=== PATIENT | female | born 2005 | race Caucasian/White ===

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

== ENCOUNTER → 2024-09-10 | Outpatient (CLI) | payer BC, SELFPAY | END | disposition home or self-care (01) | PROVIDERS: PCP Family Medicine; Referring Provider Otolaryngology; Visit Provider Otolaryngology | DX: J03.90 Acute tonsillitis, unspecified (principal) | CPT/HCPCS: 87070 ==

== ENCOUNTER → 2024-11-11 | Outpatient (CLI) | payer BC, SELFPAY ==
--- NOTE | 2024-11-11 09:40 | TONS_PTH ---
PATIENT: MAURO SIMS LOC: [facility] #:[id number] AGE/SX: 19/ ROOM: RE11/11/[address]: Dr. Austin Conley MD : 2005 BED: DIS: 11/11/2024 SPEC #: [id number] RECD: 11/11/24 15:47 STATUS: TREVOR ROMAN #: [id number] KRISTINE: 11/11/24 09:[address]: Austin Conley DEPT: SURGICAL PATHOLOGY RECD BY: Nikita Coats ENTERED: 11/12/24 10:50 SP TYPE: TONSILS OTHR DR: Dr. Austin Parker MD Tissues: A - Tonsil, NOS Procedures: Surgery Specimen Level III HEADER OPERATION: Tonsillectomy PRE-OP DIAGNOSIS: Chronic tonsillitis TISSUE SUBMITTED: A- Bilateral tonsils, right tonsil pinned MICROSCOPIC DIAGNOSIS A. Tonsils, tonsillectomy: A1. Reactive lymphoid hyperplasia (left). A2. Reactive lymphoid hyperplasia (right). MICROSCOPIC DESCRIPTION Slides are reviewed. GROSS DESCRIPTION A. Received in formalin labeled with the patient's name and date of . Designated as bilateral tonsils-pin in right are two lopez tonsils, each surfaced by lopez-pink, focally congested and granular mucosa. There is a pin designating the right tonsil which is inked black. They measure 3.7 x 2.0 x 2.0 cm (left) and 4.1 x 2.2 x 1.9 cm (right). Sectioning reveals lopez-pink, focally erythematous cryptic cut surfaces containing grumous material. Risk Compliance Manager sections are submitted as follows: A1: Left tonsilA2: Right tonsil AR 11/12/2024 CPT:[id number]
== END | disposition home or self-care (01) ==
PROVIDERS: PCP Family Medicine; Referring Provider Otolaryngology; Visit Provider Otolaryngology
DX: J35.01 Chronic tonsillitis (principal)
CPT/HCPCS: 88304